=== PATIENT | male | born 1975 | race American Indian/Alaskan Native ===

== ENCOUNTER 2020-02-28 06:00 | Day surgery (SDC) | payer BC, SELFPAY ==
[~2020-02-28] VITALS: Ht 167.6 cm; Wt 76.7 kg
[2020-02-28] MEDS ORDERED: CEFAZOLIN SOD 2 GM in D5W 50 ML IV ONE (07:00)
[2020-02-28] MEDS ORDERED: LR 1,000 ML IV SCH (07:12)
[2020-02-28] MEDS ORDERED: ONDANSETRON HCL 4 MG/2 ML VIAL IVP PRN (07:15)
[2020-02-28] MEDS ORDERED: MORPHINE 4 MG/ML INJ. SYRINGE IVP PRN (07:15)
[2020-02-28] MEDS ORDERED: MEPERIDINE HCL/PF 25 MG/ML DISP.SYRIN IVP PRN (07:15)
[2020-02-28] MEDS ORDERED: HYDROmorphone 1 MG INJ. 1 MG/ML AMPUL IVP PRN (07:15)
[2020-02-28] MEDS ORDERED: ONDANSETRON HCL 4 MG/2 ML VIAL IVP ONE (07:26)
[2020-02-28] MEDS ORDERED: SUCCINYLCHOLINE CHLORIDE 20 MG/ML(QUELICIN) IVP ONE (07:26)
[2020-02-28] MEDS ORDERED: WATER FOR IRRIGATION,STERILE 1,000 ML IRRIG.SOLN IR ONE (07:26)
[2020-02-28] MEDS ORDERED: ROCURONIUM BROMIDE 10 MG/ML (ZEMURON) IV ONE (07:26)
[2020-02-28] MEDS ORDERED: MIDAZOLAM HCL 5 MG/5 ML VIAL IVP ONE (07:26)
[2020-02-28] MEDS ORDERED: PROPOFOL 200MG/ 20ML VIAL (DIPRIVAN) IV ONE (07:26)
[2020-02-28] MEDS ORDERED: BUPIVACAINE /EPINEPHRINE/PF 0.25% 30 ML VIAL INJ ONE (07:26)
[2020-02-28] MEDS ORDERED: SEVOFLURANE 15 MIN GAS INH ONE (07:26)
[2020-02-28] MEDS ORDERED: LR 1,000 ML IV.SOLN IV ONE (07:26)
[2020-02-28] MEDS ORDERED: fentaNYL CITRATE/PF 100 MCG/2 ML AMP IVP ONE (07:26)
[2020-02-28] MEDS ORDERED: SUGAMMADEX SODIUM 200 MG/2 ML VIAL IV ONE (07:26)
[2020-02-28] MEDS ORDERED: DEXAMETHASONE SOD PHOSPHATE 4 MG/ML VIAL IVP ONE (07:26)
[2020-02-28] MEDS: KETOROLAC TROMETHAMINE 30 MG VIAL IVP PRN (09:05)
[2020-02-28] MEDS ORDERED: KETOROLAC TROMETHAMINE 30 MG VIAL ONE (09:24)
[2020-02-28] MEDS ORDERED: HYDROcodone/ACETAMIN 5-325 MG TAB (NORCO/ VICODIN) PO ONE (10:00)
[2020-02-28 10:10] VITALS: BP_SYST 113
[2020-02-28] MEDS ORDERED: HYDROcodone/ACETAMIN 5-325 MG TAB (NORCO/ VICODIN) ONE (10:21)
== END 2020-02-28 11:05 | disposition home or self-care (01) ==
LOC: SMU 06:00 → SDS 06:00
PROVIDERS: ATTEND Orthopaedic Surgery
DX: G56.21 Lesion of ulnar nerve, right upper limb (principal); Z20.828 Contact with and (suspected) exposure to other viral communicable diseases
CPT/HCPCS: 64718; C9399; J0330; J0690; J1100; J1885; J2250; J2405; J2704; J3010; J3490; J7060; J7120; U0003

== ENCOUNTER 2020-04-24 08:30 | Day surgery (SDC) | payer BC, SELFPAY ==
[~2020-04-24] VITALS: Ht 167.6 cm; Wt 71.7 kg
[~2020-04-24 08:30] MED LIST: CEFAZOLIN SOD 2 GM in D5W 50 ML IV ONE
[2020-04-24] MEDS ORDERED: NS IRRIG SOLN 1000 ML IR ONE (11:31)
[2020-04-24] MEDS ORDERED: PROPOFOL 200MG/ 20ML VIAL (DIPRIVAN) IV ONE (11:31)
[2020-04-24] MEDS ORDERED: MEPERIDINE HCL/PF 50 MG/ML AMP IM ONE (11:31)
[2020-04-24] MEDS ORDERED: KETOROLAC TROMETHAMINE 30 MG VIAL IVP ONE (11:31)
[2020-04-24] MEDS ORDERED: fentaNYL CITRATE 250 MCG/5 ML AMP IV ONE (11:31)
[2020-04-24] MEDS ORDERED: LR 1,000 ML IV.SOLN IV ONE (11:31)
[2020-04-24] MEDS ORDERED: SEVOFLURANE 15 MIN GAS INH ONE (11:31)
[2020-04-24] MEDS ORDERED: DEXAMETHASONE SOD PHOSPHATE 4 MG/ML VIAL IVP ONE (11:31)
[2020-04-24] MEDS ORDERED: MEPERIDINE HCL/PF 25 MG/ML DISP.SYRIN IVP PRN (12:15)
[2020-04-24] MEDS ORDERED: ONDANSETRON HCL 4 MG/2 ML VIAL IVP PRN (12:15)
[2020-04-24] MEDS ORDERED: LR 1,000 ML IV SCH (12:15)
[2020-04-24] MEDS: HYDROmorphone 1 MG INJ. 1 MG/ML AMPUL IVP PRN ×2 (13:24→13:34)
[2020-04-24] MEDS ORDERED: HYDROmorphone 1 MG INJ. 1 MG/ML AMPUL ONE (13:40)
[2020-04-24 13:50] VITALS: BP_SYST 117
[2020-04-24] MEDS ORDERED: HYDROcodone/ACETAMIN 10-325 MG TAB PO ONE (14:15)
[2020-04-24] MEDS ORDERED: HYDROcodone/ACETAMIN 10-325 MG TAB ONE (14:39)
== END 2020-04-24 14:50 | disposition home or self-care (01) ==
LOC: SMU 08:30 → SDS 08:30
PROVIDERS: ATTEND Orthopaedic Surgery
DX: G56.22 Lesion of ulnar nerve, left upper limb (principal); Z90.49 Acquired absence of other specified parts of digestive tract; Z20.828 Contact with and (suspected) exposure to other viral communicable diseases
CPT/HCPCS: 64718; A4565; J0690; J1100; J1170; J1885; J2175; J2704; J3010; J7060; J7120; U0003